=== PATIENT | male | born 1990 | race Caucasian/White ===

== ENCOUNTER → 2017-02-14 | Emergency (ER) | payer OTHER ==
[~2017-02-14] VITALS: Ht 180.3 cm; Wt 80.0 kg
[~2017-02-14] MED LIST: OCTREOTIDE 50 MCG in SOD CHLORIDE 0.9% 25 ML IVPB STA; OCTREOTIDE 500 MCG in SOD CHLORIDE 0.9% 49 ML IV STA; ONDANSETRON 4 MG INJ IV STA; PANTOPRAZOLE 40 MG INJ IV ONE; PANTOPRAZOLE 40 MG INJ IV STA; PANTOPRAZOLE IV 80 MG in SOD CHLORIDE 0.9% 100 ML IV STA; SOD CHLORIDE 0.9% 1,000 ML IV STA; morphine 4 MG/ML VIAL IV STA
[2017-02-14 00:34] VITALS: Ht 180.3 cm; Wt 80.0 kg
--- NOTE | 2017-02-14 01:48 | ERA ---
ER Documentation Chief Complaint Date/Time DATE: 02/14/17 TIME: 01:48 Chief Complaint vomiting blood x 1 day HPI The patient is a 26-year-old male, resenting to the ER because of acute hematemesis, severe epigastric and left lower quadrant abdominal pain for 1 day. He has been drinking heavily for the last couple of days, denies fever, chills, syncope, near syncope, neck pain, chest pain, dyspnea, dyspnea, diarrhea. He complains of black stool. He smokes half a pack a day, drinks regularly, denies illicit drug Past medical history: None Past surgical history: Bilateral testicular torsion ROS All systems reviewed and are negative except as per history of present illness. Allergies Allergies: Coded Allergies: No Known Drug Allergies (Verified Allergy, Unknown, 02/14/17) PMhx/Soc History of Surgery: Yes (testicular tortion) Anesthesia Reaction: No Hx Neurological Disorder: No Hx Respiratory Disorders: No Hx Cardiac Disorders: No Hx Psychiatric Problems: No Hx Miscellaneous Medical Probl: No Hx Alcohol Use: Yes (last drink last night,[employer] & sake per pt verbatim) Hx Substance Use: No Hx Tobacco Use: Yes Smoking Status: Current every day smoker Physical Exam Vitals Vital Signs Date Time Temp Pulse Resp B/P Pulse Ox O2 Delivery O2 Flow Rate FiO2 02/14/17 04:25 98 16 132/69 100 Room Air 02/14/17 03:00 81 19 129/79 100 Room Air 02/14/17 02:47 80 22 138/86 100 Room Air 02/14/17 01:25 68 13 142/95 100 Room Air 02/14/17 00:34 99.8 129 20 145/80 99 Physical Exam Const: No acute distress. Head: Atraumatic. Eyes: Normal Conjunctiva. ENT: Normal External Ears, Nose and Mouth. Neck: Full range of motion. No meningismus. Resp: Clear to auscultation bilaterally. Cardio: Regular tachycardic Abd: Soft, non distended, normal bowel sounds, moderate epigastric and left lower quadrant tenderness, no rigidity, rebound, CVA tenderness Skin: No petechiae or rashes. Back: No midline or flank tenderness. Ext: No cyanosis, or edema. Neur: Awake and alert. No focal deficit Psych: Normal Mood and Affect. Result Diagram: 02/14/17 0250 02/14/17 0250 Results 24 hrs Laboratory Tests Test 02/14/17 02:50 White Blood Count 14.010^3/ul Red Blood Count 5.7110^6/ul Hemoglobin 15.9g/dl Hematocrit 47.1% Mean Corpuscular Volume 82.5fl Mean Corpuscular Hemoglobin 27.8pg Mean Corpuscular Hemoglobin Concent 33.8g/dl Red Cell Distribution Width 13.0% Platelet Count 87198^3/UL Mean Platelet Volume 11.1fl Neutrophils % 82.5% Lymphocytes % 10.4% Monocytes % 6.4% Eosinophils % 0.0% Basophils % 0.1% Nucleated Red Blood Cells % 0.0/100WBC Neutrophils # 11.510^3/ul Lymphocytes # 1.510^3/ul Monocytes # 0.910^3/ul Eosinophils # 0.010^3/ul Basophils # 0.010^3/ul Nucleated Red Blood Cells # 0.010^3/ul Prothrombin Time 14.0Sec Prothrombin Time Ratio 1.1 INR International Normalized Ratio 1.08 Activated Partial Thromboplast Time 27.6Sec Sodium Level 143mmol/L Potassium Level 4.0mmol/L Chloride Level 100mmol/L Carbon Dioxide Level 20mmol/L Anion Gap 27 Blood Urea Nitrogen 22mg/dl Creatinine 0.94mg/dl Glucose Level 93mg/dl Calcium Level 9.2mg/dl Total Bilirubin 2.1mg/dl Direct Bilirubin 0.00mg/dl Indirect Bilirubin 2.1mg/dl Aspartate Amino Transf (AST/SGOT) 35IU/L Alanine Aminotransferase (ALT/SGPT) 35IU/L Alkaline Phosphatase 91IU/L Total Protein 8.3g/dl Albumin 5.0g/dl Globulin 3.30g/dl Albumin/Globulin Ratio 1.51 Lipase 28U/L Ethyl Alcohol Level < 10.0mg/dl Current Medications Medications (Trade) Dose Ordered Sig/Tyler Route PRN Reason Start Time Stop Time Status Last Admin Dose Admin Sodium Chloride (NS) 1,000 ml @ 1,000 mls/hr Q1H STAT IV 02/14/17 01:54 02/14/17 02:53 DC 02/14/17 02:42 Ondansetron HCl (Zofran Inj) 4 mg ONCE STAT IV 02/14/17 01:54 02/14/17 01:57 DC 02/14/17 02:42 Morphine Sulfate (morphine) 4 mg ONCE STAT IV 02/14/17 01:54 02/14/17 01:57 DC 02/14/17 02:42 Pantoprazole (Protonix Iv) 40 mg ONCE ONCE IV 02/14/17 02:00 02/14/17 02:01 DC 02/14/17 02:42 Pantoprazole 40 mg 40 mg ONCE STAT IV 02/14/17 03:40 02/14/17 03:43 DC 02/14/17 04:24 Pantoprazole 80 mg/Sodium Chloride 100 ml @ 10 mls/hr ONCE STAT IV 02/14/17 03:40 02/14/17 13:39 02/14/17 04:35 Octreotide Acetate 50 mcg/ Sodium Chloride 26 ml @ 100 mls/hr Q16M STAT IVPB 02/14/17 03:40 02/14/17 03:55 DC 02/14/17 04:26 Octreotide Acetate/Sodium Chloride (Sandostatin/NS) 50 ml @ 5 mls/hr ONCE STAT IV 02/14/17 03:40 02/14/17 13:39 02/14/17 04:37 Ondansetron HCl (Zofran Inj) 4 mg ONCE STAT IV 02/14/17 04:40 02/14/17 04:41 DC 02/14/17 05:01 Procedures/[place] [address] Radiology Main Line: [phone] DIAGNOSTIC IMAGING REPORT Patient: GLENNA ANGELES : 1990 Age: 26 Sex: M [facility]: [id number] [id number] DOS: 02/14/17 0000 Ordering MD: JEFFERY ERWIN MD Location: E/R Room/Bed: PROCEDURE: XR Chest. CLINICAL INDICATION: GI bleed TECHNIQUE: Portable single view of the chest COMPARISON: None. FINDINGS: Nasogastric tube has been placed. The tip is likely in the fundus of the stomach. The side-hole may be near the gastroesophageal junction. It may be helpful to advance this 8 cm. The cardiomediastinal silhouette appears within normal limits. The lungs are clear and no pleural effusion or significant edema is seen. No bony abnormality is seen. IMPRESSION: No definite acute pulmonary disease. . Side hole of the nasogastric tube may be near the gastroesophageal junction. If desired, this could be advanced approximately 8 cm. RPTAT: HLBE Inga Juarez Physician Date Time Electronically viewed and signed by Inga Juarez Physician on 02/14/2017 05 :15 LE/ CC: JEFFERY ERWIN MD [place] [address] Radiology Main Line: [phone] DIAGNOSTIC IMAGING REPORT Patient: GLENNA ANGELES : 1990 Age: 26 Sex: M MR #: [id number] DOS: 02/14/17 0154 Ordering MD: JEFFERY ERWIN MD Location: E/R Room/Bed: PROCEDURE: CT Abdomen and Pelvis without contrast. CLINICAL INDICATION: Upper GI bleed. TECHNIQUE: A CT scan of the abdomen and pelvis was performed without intravenous contrast. Coronal and sagittal reformatted images were generated. Images were reviewed on a high-resolution PACS workstation. CTDIvol: 9.51 mGy. DLP: 622.57 mGy-cm. One or more of the following dose reduction techniques were used: - Automated exposure control. - Adjustment of the mA and/or kV according to patient size. - Use of iterative reconstruction technique. COMPARISON: None. FINDINGS: The lung bases are clear. Evaluation of the abdominal and pelvic viscera is limited by the lack of oral and intravenous contrast. The liver is mildly hypodense, consistent with fatty infiltration. The gallbladder is normal in appearance. The common bile duct is not dilated. The spleen is not enlarged. No pancreatic lesion is identified and there is no pancreatic ductal dilatation. The adrenal glands are unremarkable. The kidneys are normal in size. There is no perinephric fat stranding. No hydronephrosis is seen. No urinary stone is identified. There is suggestion of distal esophageal wall thickening. The small and large bowel are normal in caliber. The colon is underdistended, limiting evaluation for colonic wall thickening. The appendix is normal. The urinary bladder is unremarkable. The pelvic organs are within normal limits. No lymphadenopathy is identified. There is no ascites. No pneumoperitoneum is seen. There are no arterial calcifications. No suspicious osseous lesion is idenitified. IMPRESSION: 1. Possible distal esophageal wall thickening, which could represent esophagitis. This could be further evaluated by esophagoscopy or a fluoroscopic esophagram, as clinically warranted. 2. Limited evaluation of much of the colon due to underdistension. Areas of colitis cannot be excluded. 3. Mildly hypodense liver, consistent with fatty infiltration. Correlation with LFTs is recommended. RPTAT: HTAR .Jaya Garcia MD, MD Date Time Electronically viewed and signed by .Jaya Garcia MD, MD on 02/14/2017 02:44 .R/ CC: JEFFERY ERWIN MD EKG: Read by emergency physician Rate/Rhythm: Ectopic atrial rhythm 85 beats/min QRS, ST, T-waves: No ST elevation, no T inversion, incomplete right bundle branch block Impression: Abnormal EKG MEDICAL MAKING DECISION: The patient is a 36-year-old male, presenting with acute GI bleed, suspected acute esophagitis. He was treated with a nasogastric tube that drained about 400 cc of coffee-ground emesis. He was treated with 1 L normal saline, Zofran 4 mg IV for nausea, morphine formula IV for pain, Protonix 80 mg IV bolus then Protonix drip at 8 mg/h, octreotide 50 g IV bolus then octreotide drip at 50 mcg/h The differential diagnoses considered include but are not limited to gastritis, peptic ulcer disease, esophageal varices, Kala-Salazar tear. Critical Care: Time: 35 minutes excluding all billable procedures. Treatments/Evaluations: Close monitoring and treatment of unstable vital signs, cardiorespiratory, and neurologic status, while maintaining tight balance of fluid, respiratory, and cardiac interventions. Departure Diagnosis: Primary Impression: GI bleed Additional Impression: Esophagitis Condition: Stable Comments I discussed the findings with the patient. I discussed the patient with the [facility] physician Dr Santos at 4:50 am who was made aware of the lab , the treatment, the patient condition. The patient is transferred via ambulance to [facility] JEFFERY ERWIN MD Feb 14, 2017 01:48
--- NOTE | 2017-02-14 02:44 | RADRPT ---
PROCEDURE: CT Abdomen and Pelvis without contrast. CLINICAL INDICATION: Upper GI bleed. TECHNIQUE: A CT scan of the abdomen and pelvis was performed without intravenous contrast. Shelton l and sagittal reformatted images were generated. Images were reviewed on a high-resolution PACS wor kstation. CTDIvol: 9.51 mGy. DLP: 622.57 mGy-cm. One or more of the following dose reduction techniques were used: - Automated exposure control. - Adjustment of the mA and/or kV according to patient size. - Use of iterative reconstruction technique. COMPARISON: None. FINDINGS: The lung bases are clear. Evaluation of the abdominal and pelvic viscera is limited by the lack of oral and intravenous contra st. The liver is mildly hypodense, consistent with fatty infiltration. The gallbladder is normal in olga earance. The common bile duct is not dilated. The spleen is not enlarged. No pancreatic lesion is id entified and there is no pancreatic ductal dilatation. The adrenal glands are unremarkable. The kidneys are normal in size. There is no perinephric fat stranding. No hydronephrosis is seen. No urinary stone is identified. There is suggestion of distal esophageal wall thickening. The small and large bowel are normal in c aliber. The colon is underdistended, limiting evaluation for colonic wall thickening. The appendix is normal. The urinary bladder is unremarkable. The pelvic organs are within normal limits. No lymphadenopathy is identified. There is no ascites. No pneumoperitoneum is seen. There are no art erial calcifications. No suspicious osseous lesion is idenitified. IMPRESSION: 1. Possible distal esophageal wall thickening, which could represent esophagitis. This could be fu rther evaluated by esophagoscopy or a fluoroscopic esophagram, as clinically warranted. 2. Limited evaluation of much of the colon due to underdistension. Areas of colitis cannot be exclu ded. 3. Mildly hypodense liver, consistent with fatty infiltration. Correlation with LFTs is recommende d. RPTAT: HTAR .Jaya Garcia MD, Date Time Electronically viewed and signed by .Jaya Garcia MD, on 02/14/2017 02:44 .R/
[2017-02-14 03:25] LABS: ADD SCAN DIFF NO
[2017-02-14 03:41] LABS: INR 1.08; PT RATIO 1.1
[2017-02-14 03:42] LABS: PARTIAL THROMBOPLASTIN TIME 27.6 Sec (25.0-35.0)
[2017-02-14 03:47] LABS: BASOPHILS % 0.1 % (0.0-2.0); HEMATOCRIT 47.1 % (42.0-52.0); HEMOGLOBIN 15.9 g/dl (14.0-18.0); LYMPHOCYTES # 1.5 10^3/ul (0.8-2.9); LYMPHOCYTES % 10.4 % (15.0-51.0); MEAN CORPUSCULAR HEMOGLOBIN 27.8 pg (29.0-33.0); MEAN CORPUSCULAR HGB CONC 33.8 g/dl (32.0-37.0); MEAN CORPUSCULAR VOLUME 82.5 fl (82.0-101.0); MEAN PLATELET VOLUME 11.1 fl (7.4-10.4); MONOCYTE # 0.9 10^3/ul (0.3-0.9); MONOCYTES % 6.4 % (0.0-11.0); NEUTROPHIL # 11.5 10^3/ul (1.6-7.5); NEUTROPHILS % 82.5 % (39.0-77.0); PLATELET COUNT 332 10^3/UL (140-415); RED BLOOD COUNT 5.71 10^6/ul (4.70-6.10)
[2017-02-14 04:12] LABS: CHLORIDE 100 mmol/L (97-110); SODIUM 143 mmol/L (135-144)
[2017-02-14 04:14] LABS: BILIRUBIN,INDIRECT 2.1 mg/dl (0-1.1); BILIRUBIN,TOTAL 2.1 mg/dl (0.2-1.3); CREATININE 0.94 mg/dl (0.61-1.24)
[2017-02-14 04:15] LABS: ALANINE AMINOTRANSFERASE 35 IU/L (13-69); ALBUMIN/GLOBULIN RATIO 1.51; ALKALINE PHOSPHATASE 91 IU/L (42-121); ANION GAP 27 (8-16); ASPARTATE AMINO TRANSFERASE 35 IU/L (15-46); BLOOD UREA NITROGEN 22 mg/dl (7-20); CALCIUM 9.2 mg/dl (8.4-10.2); CARBON DIOXIDE 20 mmol/L (21-31); GLUCOSE 93 mg/dl (70-220); TOTAL PROTEIN 8.3 g/dl (6.1-8.1)
[2017-02-14 04:16] LABS: ETHANOL < 10.0 mg/dl
--- NOTE | 2017-02-14 05:15 | RADRPT ---
PROCEDURE: XR Chest. CLINICAL INDICATION: GI bleed TECHNIQUE: Portable single view of the chest COMPARISON: None. FINDINGS: Nasogastric tube has been placed. The tip is likely in the fundus of the stomach. The side-hole ma y be near the gastroesophageal junction. It may be helpful to advance this 8 cm. The cardiomediasti nal silhouette appears within normal limits. The lungs are clear and no pleural effusion or signifi cant edema is seen. No bony abnormality is seen. IMPRESSION: No definite acute pulmonary disease. . Side hole of the nasogastric tube may be near the gastroesop hageal junction. If desired, this could be advanced approximately 8 cm. RPTAT: HLBE Physician Keegan Date Time Electronically viewed and signed by Inga Juarez Physician on 02/14/2017 05:15 LE/
[2017-02-14 06:42] VITALS: BP 120/75; PULSE 99; RESP 18; TEMP 98.2
== END | disposition short-term general hospital (02) ==
LOC: E/R 00:23
DX: K92.2 Gastrointestinal hemorrhage, unspecified (principal); R40.2252 Coma scale, best verbal response, oriented, at arrival to emergency department; K20.9 Esophagitis, unspecified; F17.210 Nicotine dependence, cigarettes, uncomplicated; R11.10 Vomiting, unspecified; R40.2142 Coma scale, eyes open, spontaneous, at arrival to emergency department; R40.2362 Coma scale, best motor response, obeys commands, at arrival to emergency department
CPT/HCPCS: 36415; 71010; 74176; 80053; 80306; 83690; 85025; 85610; 85730; 86850; 86900; 86901; 93005; 96374; 96375; 96376; 99291; C9113; J2270; J2354; J2405; J7030